=== PATIENT | male | born 1935 | race Two or more races ===

== ENCOUNTER 2019-07-02 09:49 | Emergency (ER) | payer OTHER ==
[~2019-07-02] VITALS: Ht 180.3 cm; Wt 92.1 kg
[2019-07-02 10:33] LABS: BASOPHILS % (AUTO) 0.6 % (0.0-2.0); HEMATOCRIT 40 % (39-51); HEMOGLOBIN 13.2 g/dL (13.5-17.5); LYMPHOCYTES # (AUTO) 1.5 /CMM (0.8-4.8); LYMPHOCYTES % (AUTO) 22.5 % (20.0-44.0); MEAN CORPUSCULAR HGB CONC 33 g/dl (31.0-36.0); MEAN CORPUSCULAR VOLUME 96 fL (80-96); MONOCYTES # (AUTO) 0.7 /CMM (0.1-1.30); MONOCYTES % (AUTO) 10.5 % (2.0-12.0); NEUTROPHILS # (AUTO) 4.2 /CMM (1.8-8.9); NEUTROPHILS % (AUTO) 62.4 % (43.0-81.0); PLATELET COUNT (AUTO) 176 /CMM (150-450); RED BLOOD CELL COUNT(AUTO) 4.18 MIL/uL (4.5-6.0); WHITE BLOOD COUNT (AUTO) 6.7 K/uL (4.3-11.0)
[2019-07-02 10:48] LABS: ALANINE AMINOTRANSFERASE 29 U/L (12-78); ALBUMIN 3.3 g/dL (3.4-5.0); ALKALINE PHOSPHATASE 78 U/L (46-116); ASPARTATE AMINOTRANSFERASE 27 U/L (15-37); BILIRUBIN,DIRECT 0.1 mg/dL (0.0-0.2); BILIRUBIN,TOTAL 0.5 mg/dL (0.2-1.0); CARBON DIOXIDE 33 mmol/L (21-32); CHLORIDE 104 mmol/L (98-107); CREATININE 1.2 mg/dL (0.6-1.3); GLUCOSE 78 mg/dL (74-106); POTASSIUM 5.2 mmol/L (3.5-5.1); SODIUM SERUM 139 mmol/L (136-145); TOTAL PROTEIN, SERUM 6.7 g/dL (6.4-8.2); UREA NITROGEN, BLOOD 29 mg/dL (7-18)
--- NOTE | 2019-07-02 11:30 | NUR ---
assumed care of pt, pt [id number], FROM HOME S/P GLF, LAC ON NOSE BRIDE, LIP AND ABRASION ON LEFT HAND, -KO, pt aaox4, -sob, nadn oted, vss, pending md arana
[2019-07-02] MEDS ORDERED: ALPRAZOLAM 0.5 MG TABLET ONE (11:48)
[2019-07-02] MEDS ORDERED: ALPRAZOLAM 0.5 MG TABLET PO ONE (12:00)
[2019-07-02] MEDS ORDERED: LIDOCAINE HCL/PF 1% 30 ML SDV ONE (12:10)
--- NOTE | 2019-07-02 14:02 | NUR ---
Patient discharged to home in stable condition. Written and verbal after care instructions given. Patient verbalizes understanding of instruction.
[2019-07-02 14:55] VITALS: BP 139/60
== END 2019-07-02 14:02 | disposition home or self-care (01) ==
LOC: ER 09:51
DX: S02.2XXA Fracture of nasal bones, initial encounter for closed fracture (principal); S01.01XA Laceration without foreign body of scalp, initial encounter; S01.511A Laceration without foreign body of lip, initial encounter; I10 Essential (primary) hypertension; E78.00 Pure hypercholesterolemia, unspecified; M54.9 Dorsalgia, unspecified; G89.29 Other chronic pain; Z98.890 Other specified postprocedural states; W01.0XXA Fall on same level from slipping, tripping and stumbling without subsequent striking against object, initial encounter; Y93.89 Activity, other specified; Y92.002 Bathroom of unspecified non-institutional (private) residence as the place of occurrence of the external cause; Y99.8 Other external cause status
CPT/HCPCS: 12001; 12011; 36415; 70450; 70486; 72125; 73110; 80048; 80076; 84484; 85025; 85730; 93005; 99284; A6403 ×2; J3490

== ENCOUNTER 2021-10-19 20:07 | Emergency (ER) | payer OTHER ==
[~2021-10-19] VITALS: Ht 182.9 cm; Wt 74.8 kg
--- NOTE | 2021-10-19 20:20 | NUR ---
[id number] FROM HOME C/O TROUBLE URINATING. +BLADDER PAIN X1DAY. PATIENT ALERT AND ORIENTED X3. IN BED 12 AWAITING MD ALEXANDER.
[2021-10-19 20:42] LABS: BASOPHILS % (AUTO) 0.5 % (0.0-2.0); EOSINOPHILS % (AUTO) 1.7 % (0.0-6.0); HEMATOCRIT 44 % (39-51); HEMOGLOBIN 14.5 g/dL (13.5-17.5); LYMPHOCYTES # (AUTO) 1.3 K/uL (0.8-4.8); LYMPHOCYTES % (AUTO) 24.2 % (20.0-44.0); MEAN CORPUSCULAR HGB CONC 33 g/dl (31.0-36.0); MEAN CORPUSCULAR VOLUME 93 fL (80-96); MONOCYTES # (AUTO) 0.6 K/uL (0.1-1.30); MONOCYTES % (AUTO) 10.7 % (2.0-12.0); NEUTROPHILS # (AUTO) 3.3 K/uL (1.8-8.9); NEUTROPHILS % (AUTO) 62.9 % (43.0-81.0); PLATELET COUNT (AUTO) 243 K/uL (150-450); RED BLOOD CELL COUNT(AUTO) 4.73 MIL/uL (4.5-6.0); WHITE BLOOD COUNT (AUTO) 5.3 K/uL (4.3-11.0)
--- NOTE | 2021-10-19 20:52 | NUR ---
16FR URINARY CATHETER INSERTED WITH 7OOML YELLOW OUTPUT. CATHETER SECURED AND PT TOLERATED PROCEDURE WELL. URINE SAMPLE COLLECTED AND SENT TO LAB.
[2021-10-19 21:00] LABS: CALCIUM, SERUM 9.4 mg/dL (8.5-10.1)
--- NOTE | 2021-10-19 21:12 | NUR ---
URINE SENT TO LAB
[2021-10-19 21:25] LABS: ALBUMIN 2.9 g/dL (3.4-5.0); BILIRUBIN,TOTAL 0.4 mg/dL (0.2-1.0); TOTAL PROTEIN, SERUM 6.8 g/dL (6.4-8.2)
[2021-10-19 21:28] LABS: BILIRUBIN,URINE NEGATIVE (NEGATIVE); COLOR,URINE YELLOW (YELLOW); LEUKOCYTE ESTERASE ,URINE NEGATIVE (NEGATIVE); NITRITE, URINE NEGATIVE (NEGATIVE); PROTEIN,URINE NEGATIVE (NEGATIVE); UGLUCOSE NEGATIVE (NEGATIVE); UROBILINOGEN,URINE 0.2 EU/dL (0.2)
[2021-10-19 22:33] LABS: BACTERIA,URINE None seen /HPF (None Seen); SQUAMOUS EPITHELIAL CELL,UR 0-2 /HPF (None Seen); WBC,URINE 0-2 /HPF (0-3)
--- NOTE | 2021-10-19 22:33 | NUR ---
CALLED [facility] FOR ARRANGE TRANSFER BACK HOME THE IS UNABLE TO NAMAN, : [phone]
--- NOTE | 2021-10-19 22:56 | NUR ---
[facility] AT [place]
--- NOTE | 2021-10-19 23:35 | NUR ---
REPORT GIVEN TO OMARI FROM [facility] FOR [place] HOME
--- NOTE | 2021-10-19 23:53 | NUR ---
PATIENT WAS PICKED UP BY [facility] AND D/C'D HOME IN STABLE CONDITION. F/C CHANGED TO LEG BAG AND INSTRUCTIONS GIVEN TO THE PATIENT. Patient discharged to home in stable condition. Written and verbal after care instructions given. Patient verbalizes understanding of instruction.
[2021-10-19 23:57] VITALS: BP 131/78
== END 2021-10-19 23:57 ==
LOC: ER 20:10
DX: R33.9 Retention of urine, unspecified (principal); I10 Essential (primary) hypertension; E78.00 Pure hypercholesterolemia, unspecified; G89.29 Other chronic pain; Z86.69 Personal history of other diseases of the nervous system and sense organs; Z86.010 Personal history of colon polyps
CPT/HCPCS: 36415; 80053-TC; 81001; 85025-TC; 87086-TC

== ENCOUNTER 2021-12-01 09:05 | Inpatient (IN) | payer OTHER ==
[~2021-12-01] VITALS: Ht 188 cm; Wt 62.1 kg
--- NOTE | 2021-12-01 09:09 | NUR ---
BIB RA 88 FROM HOME, BROTHER IN LAW CALLED [employer] PT HAS LABORED BREATHING AND O2 SATURATION 78% ON ROOM AIR, BIPAP PT IS 95%. BLOOD SUGAR 107. PT ATTCHED TO MONITOR, HR IS ELEVATED, AWARE. RT IS AT BEDSIDE BIPAP SETTINGS: IPAP 12; EPAP 5; RATE 17; 02 100%. PT IS A&OX3, SCHAFFER IS IN PLACE.
--- NOTE | 2021-12-01 09:16 | NUR ---
PT ARRIVED WITH IV R FA 20G, ADDITIONAL IV ESTABLIHSED R AC 18G. LABS DRAWN AND COLLECTED AT BEDSIDE.
--- NOTE | 2021-12-01 09:29 | NUR ---
RECTAL TEMPERATURE 103.4, DR COOK AWARE.
[2021-12-01] MEDS ORDERED: IV NS 0.9% 1,000 ML BAG IV ONE ×2 (09:30→10:00)
[2021-12-01] MEDS ORDERED: ACETAMINOPHEN 650 MG/SUPP.RECT RC ONE ×2 (09:32→10:00)
[2021-12-01 09:41] LABS: LYMPHOCYTES # (AUTO) 0.3 K/uL (0.8-4.8); MONOCYTES # (AUTO) 0.1 K/uL (0.1-1.30); MONOCYTES % (AUTO) 1.1 % (2.0-12.0); PLATELET COUNT (AUTO) 277 K/uL (150-450)
[2021-12-01 09:50] LABS: BASOPHILS % (AUTO) 0.1 % (0.0-2.0); HEMATOCRIT 41 % (39-51); HEMOGLOBIN 13.2 g/dL (13.5-17.5); LYMPHOCYTES % (AUTO) 1.8 % (20.0-44.0); MEAN CORPUSCULAR HGB CONC 33 g/dl (31.0-36.0); MEAN CORPUSCULAR VOLUME 93 fL (80-96); NEUTROPHILS # (AUTO) 13.8 K/uL (1.8-8.9); RED BLOOD CELL COUNT(AUTO) 4.37 MIL/uL (4.5-6.0); WHITE BLOOD COUNT (AUTO) 14.2 K/uL (4.3-11.0)
[2021-12-01] MEDS ORDERED: SERT100T12 PO (09:53)
[2021-12-01] MEDS ORDERED: ALPR0.255 PO (09:53)
[2021-12-01] MEDS ORDERED: GABA-532 PO (09:53)
[2021-12-01] MEDS ORDERED: TRAM50TA2 PO (09:53)
[2021-12-01] MEDS ORDERED: BUSP10TA35 PO (09:53)
[2021-12-01] MEDS ORDERED: ATOR10TA PO (09:53)
[2021-12-01] MEDS ORDERED: ACET-868 PO (09:53)
[2021-12-01] MEDS ORDERED: ALBU8.5H8 IH (09:53)
[2021-12-01] MEDS ORDERED: CHOL100043 PO (09:56)
[2021-12-01 09:57] LABS: CALCIUM, SERUM 9.8 mg/dL (8.5-10.1); CARBON DIOXIDE 27 mmol/L (21-32); CHLORIDE 104 mmol/L (98-107); CREATININE 1.5 mg/dL (0.6-1.3); GLUCOSE 107 mg/dL (74-106); POTASSIUM 4.1 mmol/L (3.5-5.1); SODIUM SERUM 141 mmol/L (136-145); UREA NITROGEN, BLOOD 28 mg/dL (7-18)
[2021-12-01] MEDS ORDERED: PIPERACILLIN /TAZOBACTAM 3.375 G in IV D5W 50 ML IV ONE (10:00)
[2021-12-01] MEDS ORDERED: VANCOMYCIN 1 GM in IV D5W 250 ML IV ONE (10:00)
[2021-12-01 10:04] LABS: ALANINE AMINOTRANSFERASE 15 U/L (12-78); ALBUMIN 2.8 g/dL (3.4-5.0); ALKALINE PHOSPHATASE 86 U/L (46-116); ASPARTATE AMINOTRANSFERASE 27 U/L (15-37); BILIRUBIN,DIRECT 0.1 mg/dL (0.0-0.2); BILIRUBIN,TOTAL 0.8 mg/dL (0.2-1.0)
--- NOTE | 2021-12-01 10:21 | NUR ---
CALLED NURSING SUP REGARING PT BED
[2021-12-01 10:22] LABS: ABG BASE EXCESS -4.3 mmol/L; ABG PCO2 40.8 mmHg (35.0-45.0); ABG PH 7.335 (7.350-7.450); COHb 0.1 % (0.5-1.5); MetHb 0.5 % (0.0-1.5); O2Hb 98.6 % (94.0-97.0); SITE, ABG Right Radial
[2021-12-01 10:25] LABS: BAND % (MANUAL) 6 % (0.0-5.0); LYMPHOCYTES % (MANUAL) 3 % (16-48); MONOCYTES % (MANUAL) 1 % (0-11.0); NEUTROPHILS % (MANUAL) 90 (42-76)
--- NOTE | 2021-12-01 10:33 | NUR ---
PT PLACED OF 4L NC, TOLERATING WELL, SATURATION 100%
--- NOTE | 2021-12-01 10:43 | NUR ---
COVID TEST COLLECTE AND SENT
[2021-12-01 11:30] LABS: BILIRUBIN,URINE NEGATIVE (NEGATIVE); COLOR,URINE YELLOW (YELLOW); LEUKOCYTE ESTERASE ,URINE LARGE (NEGATIVE); NITRITE, URINE POSITIVE (NEGATIVE); PH,URINE 5.5 (5.0-8.0); PROTEIN,URINE TRACE mg/dl (NEGATIVE); UGLUCOSE NEGATIVE (NEGATIVE); UROBILINOGEN,URINE 0.2 EU/dL (0.2)
[2021-12-01 12:12] LABS: BACTERIA,URINE Many /HPF (None Seen); SQUAMOUS EPITHELIAL CELL,UR Rare /HPF (None Seen); WBC,URINE 81-100 /HPF (0-3)
--- NOTE | 2021-12-01 12:20 | NUR ---
PT IS ALERT, REPONSIVE TO QUESTIONS, ANSWERS. WILL CONTINUE TO MONITOR.
[2021-12-01] MEDS ORDERED: ENOXAPARIN SODIUM 30 MG/0.3 ML DISP.SYRIN ONE (12:28)
[2021-12-01] MEDS: ENOXAPARIN SODIUM 30 MG/0.3 ML DISP.SYRIN SQ SCH (12:40)
[2021-12-01] MEDS ORDERED: ENOXAPARIN SODIUM 40 MG/0.4 ML DISP.SYRIN SQ SCH ×2 (13:00→13:30)
[2021-12-01] MEDS ORDERED: ONDANSETRON HCL/PF 4 MG/2 ML VIAL IVP PRN (13:00)
[2021-12-01] MEDS ORDERED: Z GUARD REMEDY 4 OZ OINT TP PRN (13:00)
[2021-12-01] MEDS ORDERED: IV NS 0.9% 1,000 ML IV PRN (13:00)
[2021-12-01] MEDS ORDERED: ACETAMINOPHEN 325 MG TABLET PO PRN (13:00)
[2021-12-01] MEDS ORDERED: NOREPINEPHRINE 8 MG in IV NS 0.9% 242 ML IV PRN (13:00)
--- NOTE | 2021-12-01 13:01 | NUR ---
LOVENOX 30MG GIVEN SQ
[2021-12-01] MEDS: MEROPENEM 1 G in IV NS 0.9% 100 ML IV SCH ×2 (13:15→20:34)
--- NOTE | 2021-12-01 13:22 | NUR ---
LAB AT BEDSIDE
--- NOTE | 2021-12-01 13:23 | NUR ---
PT ALERT, RESPONDS TO COMMANDS, ANSWERS QUESTIONS. COMFORT MEASURES IN PLACE. WILL CONTINUE TO MONITOR.
--- NOTE | 2021-12-01 13:50 | NUR ---
COVID PCR TEST OBTAINED AND SENT TO LAB
--- NOTE | 2021-12-01 14:28 | NUR ---
ICU NURSE BUSY, NOT ABLE TO GIVE REPORT AT THE MOMENT, WILL CALL AGAIN
--- NOTE | 2021-12-01 15:06 | NUR ---
CALLED TO GIVE REPORT, RADHA METAL WELDER SAYS BED N O LONGER AVAILABLE
--- NOTE | 2021-12-01 15:14 | NUR ---
AAOX4, POX 98% ON RA. BREATHING EVEN AND UNLABORED. WILL CONTINUE TO MONITOR.
--- NOTE | 2021-12-01 16:25 | NUR ---
REPORT GIVEN TO RN
--- NOTE | 2021-12-01 16:34 | NUR ---
PT TRANSFERRED TO ICU FOLLOWING ACLS PROTOCOL WITH EMT AND RN. VS REMAINED STABLE.
--- NOTE | 2021-12-01 16:40 | NUR ---
RN/ICU-ADMITTED THIS 86 Y/O MALE FROM ER PER ACLS PROTOCOL. DX:SEPSIS. ROUTINE ICU ADMISSION CARE INITIATED. PT. IS AWAKE,ALERT,FORGETFUL AT TIMES, FOLLOWS SIMPLE AND COMPLEX COMMANDS. PT. IS A FULL CODE. NOT IN ANY DISTRESS OR PAIN.AWAITING FOR COVID PCR RESULT, CVR IS NEGATIVE .ON SPECIAL DROPLET PRECAUTION FOR NOW.
[2021-12-01] MEDS: IV D5/ 0.9% NACL 1,000 ML IV PRN ×2 (16:56→23:58)
[2021-12-01 17:00] VITALS: BP 90/50
[2021-12-01 19:00] VITALS: BP 85/53
--- NOTE | 2021-12-01 19:45 | NUR ---
RN NOTE PATIENT AWAKE AND ALERT. FORGETFUL AT TIMES. CONTINUES ON ROOM AIR, O2 SAT 98% DENIES ANY PAIN AT THIS TIME. PATIENT STATED HE FEELS BETTER. SCHAFFER CATH NOTED, DRAINING URINE VIA GRAVITY. IV ACCESS ON RIGHT AC # 18 AND RIGHT FA #20 PATENT AND INTACT. IV D5NS @ 125ML/HR INFUSING. NO S/S OF INFILTRATION. BED LOCKED AND IN LOWEST POSITION. CALL LIGHT WITHIN REACH. ALL NEEDS ANTICIPATED.
[2021-12-01 20:00] VITALS: BP 95/60
[2021-12-01 21:00] VITALS: BP 89/46
[2021-12-01] MEDS ORDERED: IV NS 0.9% 250 ML IV PRN (21:00)
[2021-12-01 22:00] VITALS: BP 89/57
[2021-12-01 23:00] VITALS: BP 93/60
[2021-12-02] VITALS (26 sets, daily range): BP systolic 90–158; BP diastolic 45–97
[2021-12-02 04:26] LABS: BASOPHILS % (AUTO) 0.1 % (0.0-2.0); EOSINOPHILS % (AUTO) 0.1 % (0.0-6.0); HEMATOCRIT 32 % (39-51); HEMOGLOBIN 10.6 g/dL (13.5-17.5); LYMPHOCYTES # (AUTO) 1.2 K/uL (0.8-4.8); LYMPHOCYTES % (AUTO) 6.1 % (20.0-44.0); MEAN CORPUSCULAR HGB CONC 33 g/dl (31.0-36.0); MEAN CORPUSCULAR VOLUME 91 fL (80-96); MONOCYTES # (AUTO) 1.4 K/uL (0.1-1.30); MONOCYTES % (AUTO) 7.4 % (2.0-12.0); NEUTROPHILS # (AUTO) 16.9 K/uL (1.8-8.9); NEUTROPHILS % (AUTO) 86.3 % (43.0-81.0); PLATELET COUNT (AUTO) 192 K/uL (150-450); RED BLOOD CELL COUNT(AUTO) 3.47 MIL/uL (4.5-6.0); WHITE BLOOD COUNT (AUTO) 19.6 K/uL (4.3-11.0)
[2021-12-02 04:58] LABS: THYROID STIMULATING HORMONE 0.856 uIU/mL (0.358-3.74)
[2021-12-02 05:20] LABS: BILIRUBIN,TOTAL 0.4 mg/dL (0.2-1.0); CALCIUM, SERUM 8.1 mg/dL (8.5-10.1); CREATININE 1.1 mg/dL (0.6-1.3); MAGNESIUM 1.6 mg/dL (1.8-2.4); PHOSPHORUS 2.4 mg/dL (2.5-4.9); POTASSIUM 3.4 mmol/L (3.5-5.1); TOTAL PROTEIN, SERUM 5.3 g/dL (6.4-8.2)
--- NOTE | 2021-12-02 06:39 | NUR ---
RN NOTE PATIENT RESTING IN BED. ALERT AND ORIENTED X3, FORGETFUL AT TIMES. PATIENT O2 DESATURATED 79% X1 EPISODE OVER NIGHT, ADMINISTERED O2 2L VIA NASAL CANNULA, O2 SAT 100%. SCHAFFER CATH OUTPUT 550CC URINE. IV ACCESS ON RIGHT AC # 18 AND RIGHT FA #20 PATENT AND INTACT. IV D5NS @ 125ML/HR INFUSING. KEPT CLEAN AND DRY. ALL NEEDS ATTENDED PROMPTLY. CALL LIGHT WITHIN REACH. WILL ENDORSE TO AM SHIFT.
--- NOTE | 2021-12-02 07:30 | NUR ---
RN OPENING NOTE RECEIVED PATIENT RESTING IN BED. ALERT AND ORIENTED X3, FORGETFUL AT TIMES BUT IS ABLE TO VERBALIZE NEEDS.PATIENT DOES NOT CURRENTLY COMPLAIN OF SOB OR PAIN. PATIENT IS CURRETNLY ON 2 L NC O2 SAT AT 98%. IV ACCESS ON RIGHT AC # 18 AND RIGHT FA #20 PATENT AND INTACT. IV D5NS @ 125ML/HR INFUSING. SAFETY MEASURES IN PLACE CALL LIGHT WITHIN REACH, BED ALARM ACTIVATED AND 2 SIDE RAILS UP. PATIENT REMINDED TO NOT GET UP WITHOUT ASSITANCE.
[2021-12-02] MEDS ORDERED: Magnesium 1GM/D5W 100ML PREMIX 100 ML IV SCH (08:00)
[2021-12-02] MEDS: PANTOPRAZOLE 40 MG VIAL IV SCH (08:15)
[2021-12-02] MEDS: MEROPENEM 1 G in IV NS 0.9% 100 ML IV SCH ×2 (08:19→20:58)
[2021-12-02] MEDS: POTASSIUM PHOSPHATE MM 7.5 MMOL in IV NS 0.9% 100 ML IV SCH ×2 (08:57→11:57)
[2021-12-02] MEDS ORDERED: VANCOMYCIN 1 GM in IV D5W 250ml IV SCH (10:00)
[2021-12-02] MEDS: IV D5/ 0.9% NACL 1,000 ML IV PRN (12:15)
[2021-12-02] MEDS: POTASSIUM CL. PREMIX PERIPHER. 50 ML IV SCH ×2 (14:47→15:52)
--- NOTE | 2021-12-02 18:59 | NUR ---
RN CLOSING NOTE PATIENT RESTING IN BED. ALERT AND ORIENTED X3, FORGETFUL AT TIMES BUT IS ABLE TO VERBALIZE NEEDS.PATIENT DOES NOT CURRENTLY COMPLAIN OF SOB. PATIENT IS CURRETNLY ON ROOM AIR SPO2 96. IV ACCESS ON RIGHT AC # 18 AND RIGHT FA #20 PATENT AND INTACT. IV D5NS @ 125ML/HR INFUSING. ALL SCHEDULED MEDICATION WERE GIVEN. PATIENT KEPT CLEAN AND DRY REPOSITIONED PER PROTOCOL. SAFETY MEASURES IN PLACE CALL LIGHT WITHIN REACH, BED ALARM ACTIVATED AND 2 SIDE RAILS UP. WILL EDNORSE TO NIGHT NURSE FOR MUNIRA. .
--- NOTE | 2021-12-02 19:48 | NUR ---
RN NOTE PATIENT ALERT AND ORIENTED X3, FORGETFUL AT TIMES. ON ROOM AIR, O2 SAT 100% NO S/S OF RESPIRATORY DISTRESS. SCHAFFER CATH NOTED, DRAINING URINE VIA GRAVITY. IV ACCESS ON RIGHT AC # 18 AND RIGHT FA #22 PATENT AND INTACT. IV D5NS @ 125ML/HR INFUSING. NO S/S OF INFILTRATION. BED LOCKED AND IN LOWEST POSITION. CALL LIGHT WITHIN REACH. ALL NEEDS ANTICIPATED.
[2021-12-03] VITALS (19 sets, daily range): BP systolic 124–171; BP diastolic 69–98
[2021-12-03] MEDS: IV D5/ 0.9% NACL 1,000 ML IV PRN ×2 (00:19→11:59)
[2021-12-03 04:49] LABS: BASOPHILS % (AUTO) 0.2 % (0.0-2.0); EOSINOPHILS % (AUTO) 0.3 % (0.0-6.0); HEMATOCRIT 34 % (39-51); HEMOGLOBIN 11.4 g/dL (13.5-17.5); LYMPHOCYTES # (AUTO) 1.1 K/uL (0.8-4.8); LYMPHOCYTES % (AUTO) 8.8 % (20.0-44.0); MEAN CORPUSCULAR HGB CONC 34 g/dl (31.0-36.0); MEAN CORPUSCULAR VOLUME 90 fL (80-96); MONOCYTES # (AUTO) 0.9 K/uL (0.1-1.30); MONOCYTES % (AUTO) 6.7 % (2.0-12.0); NEUTROPHILS # (AUTO) 10.9 K/uL (1.8-8.9); PLATELET COUNT (AUTO) 214 K/uL (150-450); RED BLOOD CELL COUNT(AUTO) 3.74 MIL/uL (4.5-6.0); WHITE BLOOD COUNT (AUTO) 12.9 K/uL (4.3-11.0)
[2021-12-03 05:11] LABS: CALCIUM, SERUM 8.3 mg/dL (8.5-10.1); CARBON DIOXIDE 25 mmol/L (21-32); CHLORIDE 112 mmol/L (98-107); CREATININE 0.9 mg/dL (0.6-1.3); GLUCOSE 98 mg/dL (74-106); POTASSIUM 3.3 mmol/L (3.5-5.1); SODIUM SERUM 142 mmol/L (136-145); UREA NITROGEN, BLOOD 17 mg/dL (7-18)
--- NOTE | 2021-12-03 06:39 | NUR ---
RN NOTE PATIENT RESTING IN BED, ALERT AND ORIENTED X3. WITH PERIODS OF FORGETFULLNESS. ON ROOM AIR, O2 SAT 100% NO SOB NOTED. SCHAFFER CATH OUTPUT 700CC. IV ACCESS ON RIGHT AC # 18 AND RIGHT FA #22 PATENT AND INTACT. IV D5NS @ 125ML/HR INFUSING. NO S/S OF INFILTRATION. KEPT CLEAN AND DRY. TURNED AND REPOSITIONED. BED LOCKED AND IN LOWEST POSITION. CALL LIGHT WITHIN REACH. WILL ENDORSE TO AM SHIFT.
--- NOTE | 2021-12-03 07:30 | NUR ---
RN NOTES PT FOUND SEMI FOWLERS DISPLAYING NO S/S OF DISTRESS, PT ENDORSES NO PAIN AND IS BREATHING EVEN AND UNLABORED ON RA. R AC 18G AND R FA 22G ARE PATIENT AND INTACT. SCHAFFER CATH BELOW PATIENT DRAINING BY GRAVITY. VSS, RN WILL MONITOR AND TREAT THROUGHOUT SHIFT. SAFETY MEASURES IN PLACE, BED LOCKED AND IN LOWEST POSITION, SIDE RIALS UPX2, CALL LIGHT WITHIN REACH, PT INSTRUCTED TO CALL FOR ASSISTANCE.
[2021-12-03] MEDS: POTASSIUM CL. PREMIX PERIPHER. 50 ML IV SCH ×4 (07:43→10:49)
[2021-12-03] MEDS: MEROPENEM 1 G in IV NS 0.9% 100 ML IV SCH (08:56)
[2021-12-03] MEDS ORDERED: ASPIRIN 300 MG/SUPP.RECT RC SCH (09:00)
[2021-12-03] MEDS: ENOXAPARIN SODIUM 30 MG/0.3 ML DISP.SYRIN SQ SCH (09:05)
[2021-12-03] MEDS: PANTOPRAZOLE 40 MG VIAL IV SCH (09:05)
--- NOTE | 2021-12-03 12:55 | NUR ---
CT SCAN PT LEFT UNIT FOR CT SCAN, PT ON BEDSIDE MONITOR UNDER THE CARE OF NINO POZO AND ANTI AIR WARFARE OPERATIONS OFFICER
--- NOTE | 2021-12-03 13:10 | NUR ---
CT SCAN PT RETURNED. NO COMPLICATIONS REPORTED DURING TRANSPORT OR PROCEDURE.
--- NOTE | 2021-12-03 14:40 | NUR ---
PT TRANSFER RN CALLED AND GAVE REPORT TO NINO GONZALEZ AT 1410. PT TRANSPORTED IN THE CARE OF PRIMARY RN AND NINO POZO VIA HOSPITAL BED ON PORTABLE BEDSIDE MONITOR. PT IS A&OX3-4 FORGETFUL AT TIMES AND BREATHING EVEN AND UNLABORED ON RA. PT ENDORSES NO PAIN EXCEPT UPON MOVING ASSOCIATED WITH BACK. R AC 18G AND R FA 22G IV ARE PATIENT AND INTACT. SCHAFFER CATH BELOW PATIENT DRAINING BY GRAVITY. NO INCIDENT OCCURRED DURING TRANSPORT. PT ENDORSED IN STABLE CONDITION FOR MUNIRA.
--- NOTE | 2021-12-03 15:10 | NUR ---
RN NOTE PATIENT WAS TRANSFER FROM ICU, PATIENT CAME VIA GURNEY WITH NO SIGNS OF DISTRESS. REPORT RECEIVED FROM NINO CORBETT. V/S TAKEN, STABLE AND RECORDED. PATIENT AWAKE IN BED RESTING, A/O X3. NO S/S OF PAIN NOTED AT THIS TIME. ON ROOM AIR, NO DISTRESS OR SHORTNESS OF BREATH NOTED. IV ACCESS RAC #18G, INTACT, PATENT AND FLUSHING WELL. PATIENT WITH EXTERNAL SLOT OPERATIONS DIRECTOR WITH CURRENT READING OF SR, NO CARDIAC DISTRESS NOTED. PATIENT WAS ORIENTED TO ROOM SET UP AND SHOWED PATIENT HOW TO USE CALL LIGHT. FALL AND SAFETY MEASURES IN PLACE, BED ALARM ON BED IN LOW AND LOCK POSITION, CALL LIGHT AND TABLE WITHIN EASY REACH, SIDE RAILS UP X2. WILL CONTINUE TO MONITOR.
--- NOTE | 2021-12-03 19:01 | NUR ---
RN CLOSING NOTE PATIENT AWAKE IN BED RESTING, A/O X3. NO S/S OF PAIN NOTED AT THIS TIME. ON ROOM AIR, NO DISTRESS OR SHORTNESS OF BREATH NOTED. IV ACCESS RAC #18G, INTACT, PATENT AND FLUSHING WELL. PATIENT WITH EXTERNAL SURG RN WITH CURRENT READING OF ST AND HR OF 117, NO CARDIAC DISTRESS NOTED. FALL AND SAFETY MEASURES IN PLACE, BED ALARM ON BED IN LOW AND LOCK POSITION, CALL LIGHT AND TABLE WITHIN EASY REACH, SIDE RAILS UP X2. PATIENT IS GOING TO BE TRANSFER TO [facility]ER TIME IS AT 2000 PLEASE CALL TO GIVE REPORT AT [phone]. WILL ENDORSE TO CLEANER AND DYER.
--- NOTE | 2021-12-03 20:16 | NUR ---
ANALYTICS MANAGERMANAGER BEVERAGE NOTE PATIENT ALERT/ORIENTED X 3, BUT FORGETFUL, PT ABLE TO MAKE NEEDS KNOWN. PT STABLE ON RA, NO S/S OF DISTRESS OR SOB NOTED, BREATHING EVEN AND UNLABORED. PT ON EXTERNAL SPRINKLING SYSTEM IRRIGATOR READING SINUS TACHY, HR: 108. SCHAFFER CATHETER IN PLACE AND DRAINING CLEAR YELLOW URINE, OUTPUT OF 200 ML. PT TO BE TRANSFERRED TO [facility] ROOM 4110B, REPORT GIVEN TO ARMIDA @ [phone]. IV ACCESS ON RAC #18G AND RIGHT FOREARM #22G INTACT AND FLUSHING WELL. TELE MONITOR REMOVED. DISCHARGE PAPERS SIGNED BY PATIENT AND DISCHARGE PACKET GIVEN TO EMT'S. PATIENT HAS NO BELONGINGS PER BELONGING LIST IN CHART.
== END 2021-12-03 20:30 | disposition short-term general hospital (02) | DRG 871 ==
LOC: ER 09:07 → TRANSITION 11:26 → ICU 14:49 → TRANSITION 14:49 → ICU 16:12 → TELE 12-03 14:59
PROVIDERS: ADMIT Nurse Practitioner Acute Care; ATTEND Internal Medicine
DX: A41.9 Sepsis, unspecified organism (principal); N17.0 Acute kidney failure with tubular necrosis; R65.21 Severe sepsis with septic shock; G93.41 Metabolic encephalopathy; J96.01 Acute respiratory failure with hypoxia; E87.2 Acidosis; N39.0 Urinary tract infection, site not specified; G23.1 Progressive supranuclear ophthalmoplegia [Steele-Richardson-Olszewski]; I69.354 Hemiplegia and hemiparesis following cerebral infarction affecting left non-dominant side; E78.5 Hyperlipidemia, unspecified; F32.A Depression, unspecified; I10 Essential (primary) hypertension; G89.29 Other chronic pain; M19.90 Unspecified osteoarthritis, unspecified site; Z20.822 Contact with and (suspected) exposure to COVID-19; Z66 Do not resuscitate; Z74.01 Bed confinement status; Z87.891 Personal history of nicotine dependence; G62.9 Polyneuropathy, unspecified; B96.20 Unspecified Escherichia coli [E. coli] as the cause of diseases classified elsewhere
CPT/HCPCS: 36415; 36600; 70450-TC; 71045-TC; 80048-TC; 80053-TC; 80061-TC; 80076-TC; 80202-TC; 81001; 82962-TC; 83540-TC; 83605-TC; 83735-TC; 84100-TC; 84443-TC; 84484-TC; 85025-TC; 85730-TC; 87040-TC; 87081-TC; 87086-TC; 87186-TC; 92526; 92611-TC; 93307-TC; C9113; G0378; J1650; J2185; J2543; J3370; J3475; J3480; J3490; J7030; J7042; J7050; J7060; J7070; U0003